=== PATIENT | female | born 1955 | race Caucasian/White ===

== ENCOUNTER 2019-04-28 09:48 | Day surgery (SDC) | payer MEDICARE, OTHER ==
[~2019-04-28 09:48] MED LIST: FENTANYL CITRATE INJ/PF 100 MCG/2 ML AMPUL ONE; KETOROLAC TROMETHAMINE 0.45% 4 DROP/0.4 ML DROPERETTE OS PRN; MIDAZOLAM 2 MG/2 ML INJ ONE; ONDANSETRON HCL INJ/PF 4 MG/2 ML SDV ONE
[2019-04-28] MEDS: TROPICAMIDE 1% OPH SOLN 15 ML OS PRN ×3 (10:12→10:40)
[2019-04-28] MEDS: TETRACAINE HCL 0.5% OPH SOLN 4 ML OS PRN ×3 (10:12→10:50)
[2019-04-28] MEDS: CYCLOPENTOLATE 0.2%/PHENYLEPHRINE 1% OPH SOLN 2 ML OS PRN ×3 (10:12→10:40)
[2019-04-28] MEDS: BESIFLOXACIN HCL 0.6% OPH SUSP 5 ML BOTTLE OS PRN ×4 (10:12→11:24)
[2019-04-28] MEDS: LIDOCAINE 4% INJ/PF (40 MG/ML) 5 ML AMPUL OS PRN ×2 (11:00)
[2019-04-28] MEDS: BUPIVACAINE HCL 0.75% INJ/PF (7.5 MG/1 ML) 10 ML SDV OS PRN ×2 (11:00)
[2019-04-28] MEDS: LIDOCAINE 1% INJ-PF (10 MG/ML) 30 ML SDV ONE ×2 (11:10)
[2019-04-28] MEDS: CHONDR SU A NA/HYALUR INTRAOC KIT (SURGICARE) ONE ×2 (11:10)
[2019-04-28] MEDS: EPINEPHRINE INJ/PF 1 MG/1 ML AMPULE ONE ×2 (11:10)
[2019-04-28] MEDS: DORZOLAMIDE HCL 2%/TIMOLOL MALEAT 0.5% OPH SOLN 10 ML OS PRN ×2 (11:24)
--- NOTE | 2019-04-28 13:01 | Operative Report ---
Operative Report-[facility] Operative Report: DATE OF SURGERY: 04/28/2019 PREOPERATIVE DIAGNOSIS: CATARACT, LEFT EYE. POSTOPERATIVE DIAGNOSIS: CATARACT, LEFT EYE. PROCEDURE PERFORMED: PHACOEMULSIFICATION WITH POSTERIOR CHAMBER INTRAOCULAR LENS, LEFT EYE. Intraocular Lens Model : TFNT00 22.5 Joseph Optix Total Phaco Time: 29 seconds SURGEON: TENZIN MARQUEZ MD ANESTHESIA: TOPICAL WITH MAC. INDICATIONS FOR SURGERY: Difficultly driving at night PROCEDURE: The patient was brought to the Operating Room and placed on the operative table. Following tetracaine drops, topical anesthesia was administered. This consisted of instrument wipe pledgets soaked in a solution of 4% Xylocaine mixed with 0.75% Marcaine in a 1:2 ratio. A 2 x 1 cm pledget was placed in the superior fornix. A 1 x 1 cm pledget was placed in the inferior fornix. The eye was patched shut for 5 minutes. The patch was removed. The eye was sterilely prepped and draped in the usual manner. Lid speculum was placed in the eye. The pledgets were removed. 4-0 black silk sutures were placed around the superior and the inferior rectus muscles to be used as traction. A conjunctival peritomy was made at the 10 o'clock position. Hemostasis was obtained with bipolar cautery. A posterior limbal groove was created using a crescent knife and dissected anteriorly towards the cornea. A sharp point blade was used to create a paracentesis site at the 2 o'clock position. 0.2 cc non preserved Lidocaine was injected into the anterior chamber. A 2.4 mm keratome was used to enter the anterior chamber through the groove. Viscoelastic was injected into the anterior chamber. An anterior capsulotomy was performed using Utrata forceps in a capsulorrhexis fashion. Hydrodissection and hydrodelineation were performed. Phacoemulsification was performed in [id number] technique. Following this, the I/A unit was used to remove residual cortex. Viscoelastic was injected into the capsular bag. The Intraocular lens was placed in the capsular bag. The I/A unit was used to remove residual viscoelastic. The wound was seen to be watertight under high and low pressure, and no sutures were nayan chapo. The intraocular lens was well centered. The pressure was adjusted in the eye to normal pressure. The 4-0 black silk sutures and lid speculum were removed. The eye was shielded after Besivance,prednisolone, and Cosopt drops were placed. The patient tolerated the procedure well and was sent to the Recovery Room in good condition.
== END 2019-04-28 12:02 | disposition home or self-care (01) ==
LOC: SC 09:48
PROVIDERS: ATTEND Ophthalmology
DX: H25.813 Combined forms of age-related cataract, bilateral (principal); D31.31 Benign neoplasm of right choroid; H43.813 Vitreous degeneration, bilateral; H52.4 Presbyopia; Z79.82 Long term (current) use of aspirin; E05.90 Thyrotoxicosis, unspecified without thyrotoxic crisis or storm; Z79.899 Other long term (current) drug therapy
CPT/HCPCS: 66984; V2788; J2250; J3490 ×5; A9270; J0171; J3010; J2405

== ENCOUNTER 2019-07-07 09:00 | Day surgery (SDC) | payer MEDICARE, OTHER ==
[~2019-07-07 09:00] MED LIST changes: +BUPIVACAINE HCL 0.75% INJ/PF (7.5 MG/1 ML) 10 ML SDV OD PRN; -FENTANYL CITRATE INJ/PF 100 MCG/2 ML AMPUL ONE; +KETOROLAC TROMETHAMINE 0.45% 4 DROP/0.4 ML DROPERETTE OD PRN; -KETOROLAC TROMETHAMINE 0.45% 4 DROP/0.4 ML DROPERETTE OS PRN; +LIDOCAINE 4% INJ/PF (40 MG/ML) 5 ML AMPUL OD PRN; -MIDAZOLAM 2 MG/2 ML INJ ONE; -ONDANSETRON HCL INJ/PF 4 MG/2 ML SDV ONE
[2019-07-07] MEDS ORDERED: MIDAZOLAM 2 MG/2 ML INJ ONE (09:32)
[2019-07-07] MEDS ORDERED: FENTANYL CITRATE INJ/PF 100 MCG/2 ML AMPUL ONE (09:33)
[2019-07-07] MEDS: TETRACAINE HCL 0.5% OPH SOLN 4 ML OD PRN ×3 (09:36→10:00)
[2019-07-07] MEDS: BESIFLOXACIN HCL 0.6% OPH SUSP 5 ML BOTTLE OD PRN ×4 (09:37→10:31)
[2019-07-07] MEDS: CYCLOPENTOLATE 0.2%/PHENYLEPHRINE 1% OPH SOLN 2 ML OD PRN ×3 (09:37→09:57)
[2019-07-07] MEDS: TROPICAMIDE 1% OPH SOLN 15 ML OD PRN ×3 (09:37→09:57)
[2019-07-07] MEDS: EPINEPHRINE INJ/PF 1 MG/1 ML AMPULE ONE ×2 (10:14)
[2019-07-07] MEDS: CHONDR SU A NA/HYALUR INTRAOC KIT (SURGICARE) ONE ×2 (10:14)
[2019-07-07] MEDS: LIDOCAINE 1% INJ-PF (10 MG/ML) 30 ML SDV ONE ×2 (10:17)
[2019-07-07] MEDS: DORZOLAMIDE HCL 2%/TIMOLOL MALEAT 0.5% OPH SOLN 10 ML OD PRN ×2 (10:31)
--- NOTE | 2019-07-07 10:37 | Operative Report ---
Operative Report-[facility] Operative Report: DATE OF SURGERY: 07/07/2019 PREOPERATIVE DIAGNOSIS: CATARACT, RIGHT EYE. POSTOPERATIVE DIAGNOSIS: CATARACT, RIGHT EYE. PROCEDURE PERFORMED: PHACOEMULSIFICATION WITH POSTERIOR CHAMBER MULTIFOCAL INTRAOCULAR LENS, RIGHT EYE. Intraocular Lens Model : TFNT00 22.0 Total Phaco Time: 59 seconds SURGEON: TENZIN MARQUEZ MD ANESTHESIA: TOPICAL WITH MAC. INDICATIONS FOR SURGERY:difficulty driving at night. PROCEDURE: The patient was brought to the Operating Room and placed on the operative table. Following tetracaine drops, topical anesthesia was administered. This consisted of instrument wipe pledgets soaked in a solution of 4% Xylocaine mixed with 0.75% Marcaine in a 1:2 ratio. A 2 x 1 cm pledget was placed in the superior fornix. A 1 x 1 cm pledget was placed in the inferior fornix. The eye was patched shut for 5 minutes. The patch was removed. The eye was sterilely prepped and draped in the usual manner. Lid speculum was placed in the eye. The pledgets were removed. 4-0 black silk sutures were placed around the superior and the inferior rectus muscles to be used as traction. A conjunctival peritomy was made at the 10 o'clock position. Hemostasis was obtained with bipolar cautery. A posterior limbal groove was created using a crescent knife and dissected anteriorly towards the cornea. A sharp point blade was used to create a paracentesis site at the 2 o'clock position. 0.2 cc non preserved Lidocaine was injected into the anterior chamber. A 2.4 mm keratome was used to enter the anterior chamber through the groove. Viscoelastic was injected into the anterior chamber. An anterior capsulotomy was performed using Utrata forceps in a capsulorrhexis fashion. Hydrodissection and hydrodelineation were performed. Phacoemulsification was performed in [id number] technique. Following this, the I/A unit was used to remove residual cortex. Viscoelastic was injected into the capsular bag. The Intraocular lens was placed in the capsular bag. The I/A unit was used to remove residual viscoelastic. The wound was seen to be watertight under high and low pressure, and no sutures were pl aced. The intraocular lens was well centered. The pressure was adjusted in the eye to normal pressure. The 4-0 black silk sutures and lid speculum were removed. The eye was shielded after Besivance. prednisolone, and Cosopt drops were placed. The patient tolerated the procedure well and was sent to the Recovery Room in good condition.
== END 2019-07-07 11:04 | disposition home or self-care (01) ==
LOC: SC 09:00
PROVIDERS: ATTEND Ophthalmology
DX: H25.811 Combined forms of age-related cataract, right eye (principal); Z79.899 Other long term (current) drug therapy; Z96.1 Presence of intraocular lens; Z79.82 Long term (current) use of aspirin; G47.33 Obstructive sleep apnea (adult) (pediatric); E03.9 Hypothyroidism, unspecified
CPT/HCPCS: 66984; V2788; J2250; J3490 ×5; A9270; J0171; J3010; 142